=== PATIENT | male | born 1950 | race Caucasian/White ===

== ENCOUNTER 2018-03-08 00:45 | Day surgery (SDC) | payer MEDICARE ==
[~2018-03-08] VITALS: Ht 180.3 cm; Wt 93.0 kg
[~2018-03-08 00:45] MED LIST: ASPI81TA94 PO; CALC500T6 PO; CETI10CA8 PO; CHOL10005 PO; DOXY-179 PO; EZET1TAB81 PO; FURO-47 PO; GLUC500T22 PO; LOSA-51 PO; LOSA25TA50 PO; METO25TA23 PO; MULT-1335 PO; MULT-856 PO; NAPR220C12 PO; OMEG-11 PO; OMEG500C5 PO; SIMV-54 PO; TEST2.5G TD; WARF5TAB23 PO; [UNRECOGNIZED DRUG - OTHER]
[2018-03-08 07:11] LABS: PLATELET COUNT, AUTOMATED 178 K/uL (150-450)
[2018-03-08] MEDS ORDERED: LIDOCAINE MPF 1% 5 ML VIAL ONE (07:57)
[2018-03-08] MEDS ORDERED: ONDANSETRON 4 MG/2 ML VIAL ONE (07:57)
[2018-03-08] MEDS ORDERED: PROPOFOL EMUL(*) 10MG/ML 20 ML 20 ML ONE (07:57)
[2018-03-08] MEDS ORDERED: DEXAMETHASONE SOD 4 MG/ML VIAL ONE (07:57)
[2018-03-08] MEDS ORDERED: fentaNYL CITR 100 MCG/2 ML AMP ONE ×3 (07:57→10:14)
[2018-03-08 08:24] VITALS: BP 128/87
[2018-03-08] MEDS ORDERED: GELATIN SPONGE SZ 100 ONE (08:27)
[2018-03-08] MEDS ORDERED: ROPIVACAINE 0.5% 20 ML VIAL ONE (08:27)
[2018-03-08] MEDS ORDERED: FAMOTIDINE 20 MG TAB PO ONE (09:40)
[2018-03-08] MEDS ORDERED: LIDOCAINE/SOD BICARB 8.4% SYR ID ONE (09:40)
[2018-03-08] MEDS ORDERED: NORMOSOL R SOLN(*) 1000 ML BAG 1,000 ML IV PRN (09:40)
[2018-03-08] MEDS ORDERED: MIDAZOLAM 2 MG/2 ML VIAL IVP PRN (09:40)
[2018-03-08] MEDS ORDERED: OXYC-854 PO (10:31)
[2018-03-08] MEDS ORDERED: DOCU-416 PO (10:31)
--- NOTE | 2018-03-08 10:36 | Short(Outpt) Discharge Summary ---
Discharge Summary Reason for Hosp/Final Diag: (1) History of colon polyps Status: Chronic Hospital Course & Plan: Colonoscopy with polypectomy x4 and 3 column hemorrhoidectomy completed without problems. (2) Hemorrhoids Status: Chronic Departure Discharge to: Home, Self Care Discharge Instructions Home Meds Active Scripts Docusate Sodium (COLACE) 100 Mg Capsule, 1 CAP PO BID, #30 CAP 0 Refills TAKE WITH A FULL GLASS OF WATER Prov:FERNANDO NUÑEZ MD 03/08/18 Oxycodone Hcl/Acet 5/325 Mg (ENDOCET 5-325 TABLET) 1 Each Tablet, 1-2 TAB PO Q4H PRN for PAIN, #30 TAB 0 Refills Prov:FERNANDO NUÑEZ MD 03/08/18 Reported Medications [place]-3 Fatty Acids/Fish Oil (FISH OIL 1,000 MG CAPSULE) 1 Each Capsule, 2 CAP PO QDAY, CAPSULE 01/22/18 Cholecalciferol (Vitamin D3) (VITAMIN D3) 1,000 Unit Tablet, 1 TAB PO QDAY, TAB 01/22/18 Multivitamin With Minerals (MULTIPLE VITAMIN) 1 Each Tablet, 1 TAB PO QDAY, TAB 01/22/18 Simvastatin (SIMVASTATIN) 40 Mg Tablet, 1 TAB PO QHS, TAB 02/01/17 Aspirin (ASPIRIN) 81 Mg Tab.chew, 1 TAB PO QDAY, TAB.CHEW 11/16/15 Follow up Referrals: General Surgery - 03/20/18 @ Surgery, General with FERNANDO NUÑEZ MD You have a follow up appointment scheduled with Dr. Nuñez on 03/20/18, at 4:30pm. Diet: Regular Activity: As Tolerated Special Instructions: I expect that your anus will be quite painful for the next couple of weeks. You can use the oxycodone/apap and ibuprofen as well as hot baths to help with the pain. Your first bowel movement will include a foam pad I placed in your anal canal and it will look like bloody clots. Don't be alarmed if you see this. You can also expect to have pain and blood with your bowel movements which should improve over the next 2 weeks. Try to keep your bowel movements soft and easy to pass by continuing to take the metamucil fiber and the colace stool softener. If you need more help with bowel movements, fruit picker miralax and take a packet of this in water every day. Your colonoscopy was completed without any problems and your prep was excellent (Good Job!!). I found 4 small polyps in your colon and they were removed and sent to pathology. I will discuss your pathology results with you when I see you back in my office in 2 weeks. Problem Qualifiers (1) Hemorrhoids: Hemorrhoid type: third degree Qualified Codes: K64.2 - Third degree hemorrhoids FERNANDO NUÑEZ MD Mar 08, 2018 10:36
--- NOTE | 2018-03-08 10:43 | Post Operative Progress Note ---
Post Operative Progress Note Date: Mar 08, 2018 Time: 10:37 Surgeon: Nikunj Dictation number: [id number] Anesthesia: LMA by Dr. Shanks Pre-Op Diagnosis: H/O colon polyps Hemorrhoids Post-Op Diagnosis: 4 colon polyps Hemorrhoids Findings: 4 small polyps, 1 at hepatic flexure, descending colon, sigmoid colon, and rectum Excellent bowel prep Procedure(s): Colonoscopy with cold forceps removal of 4 small polyps 3 column excisional hemorrhoidectomy Specimen Removed:(May be N/A): 1) hepatic flexure polyp 2) descending colon polyp 3) sigmoid colon polyp 4) rectal polyp 5) hemorrhoids Complications: None Fluids: See anesthesia record Estimated Blood Loss: Minimal Date OP Note Dictated: Mar 08, 2018 Time OP Note Dictated: 10:39 FERNANDO NUÑEZ MD Mar 08, 2018 10:43
--- NOTE | 2018-03-08 11:17 | OPERATIVE REPORT 1 ---
EVENT DATE: March 08, 2018 SURGEON: Carl Calvin MD ANESTHESIOLOGIST: Ron Shanks MD ANESTHESIA: LMA PREOPERATIVE DIAGNOSIS 1. History of colon polyps. 2. Hemorrhoids. POSTOPERATIVE DIAGNOSIS 1. History of colon polyps. 2. Hemorrhoids. PROCEDURE PERFORMED 1. Colonoscopy with cold forceps removal of four small polyps. 2. Three column excisional hemorrhoidectomy. COMPLICATIONS None. CONDITION Stable. ESTIMATED BLOOD LOSS Minimal INDICATIONS This is a 67-year-old gentleman who presented to my office for a colonoscopy due to a previous history of colon polyps. He also had hemorrhoids and was requesting that I address his hemorrhoids. DESCRIPTION OF PROCEDURE The patient was brought to the operating room and placed supine on the operating table. LMA anesthesia was administered and his legs were placed in candy-cane stirrups. The colonoscope was obtained and tested to insure it was completely functional, lubricated and inserted into his rectum through his anus. I advanced the scope all the way through to his cecum without any problems and then slowly withdrew the scope as I looked at all mucosal surfaces for any abnormalities. At the hepatic flexure, I found a small polyp that was removed in a single bite with cold forceps and then another one in the descending colon, sigmoid colon, and then rectum. All removed with the cold forceps and were all very small. I did cauterize around the biopsy sites to remove any adenomatous tissue and made sure that these were hemostasis. I retroflexed the scope when it was in the rectum to look at the distal rectum and anal canal and saw some prominent hemorrhoidal tissue. I then withdrew the scope and removed it from the patient's rectum. Total withdrawal time was about 10 minutes and the prep was excellent. I then scrubbed in and had his peroneal and perianal area prepped and draped in sterile fashion. A timeout was completed again. I used the anal speculum and inspected his anal canal. I saw several columns of enlarged hemorrhoidal tissue. I felt these were best treated with excision with the best chance of not coming back. I grabbed them and turned and used the electrocautery, raised them up from the underlying muscular layers of his anal canal and distal rectum, down to the pedicle and then used 3-0 Silk suture ligatures to ligate the pedicle of these hemorrhoidal columns and then removed the hemorrhoids. I reapproximated the mucosa from the distal anoderm to the rectal mucosa with a running 3-0 Chromic sutures in a circumferential fashion, not a longitudinal fashion. When this was done everything was hemostatic. I placed a rolled up piece of [place] in the anal canal and then cleaned his buttocks and then placed net underwear on him and then he was awakened, all LMA removed, and he was transported to the recovery room in stable condition having tolerated the without any apparent problems. DORIS
[2018-03-08 11:30] VITALS: BP 139/83
[2018-03-08 11:32] VITALS: BP 115/73
== END 2018-03-08 11:00 | disposition home or self-care (01) ==
LOC: OR 00:45
PROVIDERS: ATTEND Surgery
DX: D12.4 Benign neoplasm of descending colon (principal); D12.3 Benign neoplasm of transverse colon; D12.5 Benign neoplasm of sigmoid colon; K63.5 Polyp of colon
CPT/HCPCS: 00812; 36415; 45380; 46260; 85025; 88302; 88305; A9270; J1100; J2001; J2405; J2704; J2795; J3010